=== PATIENT | female | born 1990 | race Caucasian/White ===

== ENCOUNTER → 2017-01-06 | Outpatient (CLI) | payer MEDICAID | LOC: OD 16:33 | PROVIDERS: ATTEND Midwife | DX: E03.9 Hypothyroidism, unspecified (principal) | CPT/HCPCS: 36415; 84443 ==

== ENCOUNTER 2017-05-15 21:37 | Outpatient (CLI) | payer OTHER, MEDICAID ==
[2017-05-15 22:10] LABS: APPEARANCE,URINE SLIGHTLY-CLOUDY; BILIRUBIN,URINE NEGATIVE (NEGATIVE); GLUCOSE, URINE NEGATIVE (NEGATIVE); KETONES,URINE TRACE mg/dL (NEGATIVE); LEUKOCYTE ESTERASE,URINE NEGATIVE (NEGATIVE); NITRITE,URINE NEGATIVE (NEGATIVE); PROTEIN,URINE 30 mg/dL (NEGATIVE); URINE SPECIFIC GRAVITY 1.023; UROBILINOGEN,URINE NEGATIVE mg/dL (<2.0)
[2017-05-15 22:25] LABS: URINE BARBITURATES SCREEN NEGATIVE; URINE METHADONE SCREEN NEGATIVE; URINE OPIATES LOW NEGATIVE; URINE PHENCYCLIDINE SCREEN NEGATIVE
[2017-05-15 23:26] LABS: ABSOLUTE BASOPHILS # (AUTO) 0.1 10^3/uL (0.0-0.2); ABSOLUTE EOSINOPHILS # (AUTO) 0.3 10^3/uL (0.0-0.6); ABSOLUTE LYMPHOCYTES (AUTO) 1.8 10^3/uL (0.5-4.7); BASOPHILS % (AUTO) 0.5 % (0-2); EOSINOPHILS % (AUTO) 2.5 % (0-6); HEMATOCRIT 34.6 % (36.0-47.0); HEMOGLOBIN 11.9 g/dL (12.0-15.5); HGB HCT DIFFERENCE 1.1; MEAN CORPUSCULAR HEMOGLOBIN 31.2 pg (27.0-33.4); MEAN CORPUSCULAR HGB CONC 34.4 g/dL (32.0-36.0); MEAN CORPUSCULAR VOLUME 91 fl (80-97); RED BLOOD COUNT 3.81 10^6/uL (3.72-5.28); RED CELL DISTRIBUTION WIDTH 13.5 % (11.5-14.0)
[2017-05-15] MEDS ORDERED: RANITIDINE HCL SYRUP 150 MG/10 ML UDCUP PO ONE (23:31)
[2017-05-15 23:45] LABS: ALANINE AMINOTRANSFERASE 32 U/L (9-52); ALBUMIN 3.3 g/dL (3.5-5.0); ALKALINE PHOSPHATASE 115 U/L (38-126); ANION GAP 12 (5-19); ASPARTATE AMINO TRANSFERASE 22 U/L (14-36); BILIRUBIN,DIRECT 0.3 mg/dL (0.0-0.4); BILIRUBIN,TOTAL 0.4 mg/dL (0.2-1.3); BLOOD UREA NITROGEN 10 mg/dL (7-20); CALCIUM 8.9 mg/dL (8.4-10.2); CARBON DIOXIDE 20 mmol/L (22-30); CHLORIDE 106 mmol/L (98-107); CREATININE RESULT 0.55 mg/dL (0.52-1.25); GLUCOSE 81 mg/dL (75-110); LDH 365 U/L (313-618); POTASSIUM 3.7 mmol/L (3.6-5.0); TOTAL PROTEIN 6.5 g/dL (6.3-8.2); URIC ACID 6.3 mg/dL (2.5-6.2)
--- NOTE | 2017-05-16 00:55 | L&D Progress Notes ---
PROGRESS NOTES Datetime Report Generated by CPN: 05/16/2017 00:55 PROGRESS NOTE Impression Other: Hypertension @ 38w6d Plan: Discharge Informed Consent Obtained: Risks, Benefits and Alternatives Discussed Vital Signs : Reviewed Vital Signs Comments: Mild range hypertension Comment: 26yo G1 @ 38w6d presents to LD with complaints of new onset LE swelling and visual changes consisting of zig zags in front of eyes. Upon questioning, pt denies HAs and RUQ pain. Pt admits to mid epigastric discomfort for which she has taken tums this but no other antacid medication. Pt denies morning facial edema or any other non-dependant edema. Pt denies LOF and regular painful contractions, only LBP and left sided discomfort and left sided sciatica. Pt states she feels as if the baby is slowing down but admits to regular movements after eating. non stress test is reactive without any form of decelerations. Pt denies any problems with this . Pt is present with her and sister in law. Pt lives approximately 10[place]ins away according to her . Pt is comfortable with collecting a 24hr urine and returning to D. Patient appears to be reliable and has good support. Physical Exam: Abdomen-gravid, NT, No RUQ pain, mid epiastric tenderness Extremities- LE reflex is 1+, no clonus: UE 2+ Back: No CVA tenderness LABS: HELLP labs are negative Urate 6.2 but Cr 0.5 Assessement: 1. Hypertension @ 38w6d in primigravida 2. Questionable neurologic stigmata 3. Unfavorable cervix 4. GBS negative PLAN: 1. Return outpatient 24urine to L_D on 17 May 2017 2. NST, Growth and BPP on 17 May 2017 3. Discharge home with PreE precautions, FKCs and labor precautions 4. Pt to reutrn if current status changes 5. Will inform Dr. Contreras if patient does not represent prior to turning in her 24hr urine VAGINAL EXAM Contractions: 6-9 mins MEMBRANES Membranes: Intact FETUS A FHR - Baseline: 130s Monitoring: External US Variability: Moderate 6-25bpm Accelerations: 15X15 Decelerations: None FHR Category: Category I FHR Comments: Reasurring status and reactive SIGNATURE SIGNATURE: [id number] Signature: with User ID: [email or web address]
[2017-05-17 10:32] LABS: URINE PROTEIN 9.7 mg/dL (<12)
--- NOTE | 2017-05-20 09:09 | Non Stress Test Report ---
Non Stress Test Datetime Report Generated by CPN: 05/20/2017 09:08 DEMOGRAPHIC EGA NST: 38.6 INDICATION Indication for Study: Decreased Movement; Ordered by Provider MONITORING Monitor Explained: Monitor Explained; Test Explained; Patient Verbalized Understanding Time on Monitor: 05/15/2017 21:48 Time off Monitor: 05/16/2017 00:03 NST Duration: 135 NST INTERVENTIONS NST Interventions: PO Hydration Physician Notified NST: Dr. Maciel BABY A: [id number] BABY A Movement : Present Contraction Frequency : 5-10 FHR Baseline : 120 Accelerations : 15X15 Decelerations : None Variability : Moderate 6-25bpm NST Review: Meets Criteria for Reactive NST NST Review and Verified By : Amanda Gagnon RN NST Results: Reactive NST REPORT Report Trigger: Send Report
== END 2017-05-16 00:23 | disposition home or self-care (01) ==
LOC: LC 21:37 → UNDOADMOB 23:23 → LR 23:23 → UNDODISOB 05-16 00:23 → LC 05-16 00:23
PROVIDERS: ATTEND Obstetrics & Gynecology
PROC: 4A1HXCZ Monitoring of Products of Conception, Cardiac Rate, External Approach (ICD-10-PCS; principal; 2017-05-15)
DX: O16.3 Unspecified maternal hypertension, third trimester (principal); Z3A.38 38 weeks gestation of pregnancy; O36.8130 Decreased fetal movements, third trimester, not applicable or unspecified
CPT/HCPCS: 59025; 36415; 83615; 84156; 84550; 85025; 81005; 80053; 80307; J3490

== ENCOUNTER 2017-05-20 09:30 | Outpatient (CLI) | payer OTHER, MEDICAID ==
[2017-05-20 10:30] LABS: APPEARANCE,URINE CLOUDY; BILIRUBIN,URINE NEGATIVE (NEGATIVE); GLUCOSE, URINE NEGATIVE (NEGATIVE); KETONES,URINE NEGATIVE (NEGATIVE); LEUKOCYTE ESTERASE,URINE SMALL (NEGATIVE); NITRITE,URINE NEGATIVE (NEGATIVE); PROTEIN,URINE 30 mg/dL (NEGATIVE); URINE SPECIFIC GRAVITY 1.023; UROBILINOGEN,URINE NEGATIVE mg/dL (<2.0)
[2017-05-20 10:39] LABS: ABSOLUTE BASOPHILS # (AUTO) 0.1 10^3/uL (0.0-0.2); ABSOLUTE EOSINOPHILS # (AUTO) 0.2 10^3/uL (0.0-0.6); ABSOLUTE LYMPHOCYTES (AUTO) 1.5 10^3/uL (0.5-4.7); ABSOLUTE MONOCYTES (AUTO) 0.7 10^3/uL (0.1-1.4); ABSOLUTE NEUT (AUTO) 7.7 10^3/uL (1.7-8.2); BASOPHILS % (AUTO) 0.6 % (0-2); EOSINOPHILS % (AUTO) 1.5 % (0-6); HEMATOCRIT 35.6 % (36.0-47.0); HEMOGLOBIN 12.6 g/dL (12.0-15.5); HGB HCT DIFFERENCE 2.2; LYMPHOCYTES % (AUTO) 14.9 % (13-45); MEAN CORPUSCULAR HEMOGLOBIN 31.8 pg (27.0-33.4); MEAN CORPUSCULAR HGB CONC 35.4 g/dL (32.0-36.0); MEAN CORPUSCULAR VOLUME 90 fl (80-97); MONOCYTES % (AUTO) 6.6 % (3-13); RED BLOOD COUNT 3.95 10^6/uL (3.72-5.28); RED CELL DISTRIBUTION WIDTH 13.4 % (11.5-14.0); SEGMENTED NEUTROPHILS % (AUTO) 76.4 % (42-78)
[2017-05-20 10:52] LABS: URINE BARBITURATES SCREEN NEGATIVE; URINE METHADONE SCREEN NEGATIVE; URINE OPIATES LOW NEGATIVE; URINE PHENCYCLIDINE SCREEN NEGATIVE
[2017-05-20 10:56] LABS: URINE CREATININE 269.7 mg/dL (16-327); URINE PROTEIN 11.1 mg/dL (<12)
[2017-05-20 11:09] LABS: ALANINE AMINOTRANSFERASE 29 U/L (9-52); ALBUMIN 3.4 g/dL (3.5-5.0); ALKALINE PHOSPHATASE 120 U/L (38-126); ANION GAP 13 (5-19); ASPARTATE AMINO TRANSFERASE 21 U/L (14-36); BILIRUBIN,DIRECT 0.3 mg/dL (0.0-0.4); BILIRUBIN,TOTAL 0.5 mg/dL (0.2-1.3); BLOOD UREA NITROGEN 10 mg/dL (7-20); CALCIUM 9.2 mg/dL (8.4-10.2); CARBON DIOXIDE 20 mmol/L (22-30); CHLORIDE 104 mmol/L (98-107); CREATININE RESULT 0.61 mg/dL (0.52-1.25); GLUCOSE 74 mg/dL (75-110); LDH 375 U/L (313-618); POTASSIUM 4.1 mmol/L (3.6-5.0); SODIUM 137.3 mmol/L (137-145); TOTAL PROTEIN 6.7 g/dL (6.3-8.2); URIC ACID 6.9 mg/dL (2.5-6.2)
--- NOTE | 2017-05-20 11:43 | Non Stress Test Report ---
Non Stress Test Datetime Report Generated by CPN: 05/20/2017 11:43 DEMOGRAPHIC EGA NST: 39.4 INDICATION Indication for Study: Ordered by Provider; Other Indication for Study (NST) Other: Increased blood pressure in office MONITORING Monitor Explained: Monitor Explained; Test Explained; Patient Verbalized Understanding Time on Monitor: 05/20/2017 10:07 Time off Monitor: 05/20/2017 10:27 NST Duration: 20 NST INTERVENTIONS NST Interventions: PO Hydration Physician Notified NST: A. Meneses, CNM BABY A Movement : Present Contraction Frequency : irritibility FHR Baseline : 120 Accelerations : 15X15 Decelerations : None Variability : Moderate 6-25bpm NST Review: Meets Criteria for Reactive NST NST Review and Verified By : Omar Gilliam RN NST Results: Reactive NST REPORT Report Trigger: Send Report
== END 2017-05-20 11:13 | disposition home or self-care (01) ==
LOC: LC 09:30
PROVIDERS: ATTEND Obstetrics & Gynecology
PROC: 4A1HXCZ Monitoring of Products of Conception, Cardiac Rate, External Approach (ICD-10-PCS; principal; 2017-05-20)
DX: O16.3 Unspecified maternal hypertension, third trimester (principal); Z3A.39 39 weeks gestation of pregnancy
CPT/HCPCS: 36415; 59025; 80053; 80307; 81001; 82570; 83615; 84156; 84550; 85025

== ENCOUNTER 2017-05-20 19:03 | Inpatient (IN) | payer OTHER, MEDICAID ==
[2017-05-20 19:48] LABS: ABSOLUTE BASOPHILS # (AUTO) 0.1 10^3/uL (0.0-0.2); ABSOLUTE EOSINOPHILS # (AUTO) 0.2 10^3/uL (0.0-0.6); ABSOLUTE LYMPHOCYTES (AUTO) 2.2 10^3/uL (0.5-4.7); ABSOLUTE MONOCYTES (AUTO) 0.9 10^3/uL (0.1-1.4); BASOPHILS % (AUTO) 0.7 % (0-2); EOSINOPHILS % (AUTO) 2.2 % (0-6); HEMOGLOBIN 12.3 g/dL (12.0-15.5); HGB HCT DIFFERENCE 1.9; LYMPHOCYTES % (AUTO) 21.4 % (13-45); MEAN CORPUSCULAR HEMOGLOBIN 31.7 pg (27.0-33.4); MEAN CORPUSCULAR HGB CONC 35.1 g/dL (32.0-36.0); MEAN CORPUSCULAR VOLUME 90 fl (80-97); MONOCYTES % (AUTO) 8.5 % (3-13); RED BLOOD COUNT 3.88 10^6/uL (3.72-5.28); RED CELL DISTRIBUTION WIDTH 13.2 % (11.5-14.0); SEGMENTED NEUTROPHILS % (AUTO) 67.2 % (42-78); WHITE BLOOD COUNT 10.5 10^3/uL (4.0-10.5)
[2017-05-20 20:05] LABS: APPEARANCE,URINE CLOUDY; BILIRUBIN,URINE NEGATIVE (NEGATIVE); GLUCOSE, URINE NEGATIVE (NEGATIVE); KETONES,URINE NEGATIVE (NEGATIVE); LEUKOCYTE ESTERASE,URINE LARGE (NEGATIVE); NITRITE,URINE NEGATIVE (NEGATIVE); PROTEIN,URINE 30 mg/dL (NEGATIVE); URINE SPECIFIC GRAVITY 1.025; UROBILINOGEN,URINE NEGATIVE mg/dL (<2.0)
[2017-05-20 20:07] LABS: URINE BARBITURATES SCREEN NEGATIVE; URINE METHADONE SCREEN NEGATIVE; URINE OPIATES LOW NEGATIVE; URINE PHENCYCLIDINE SCREEN NEGATIVE
[2017-05-20] MEDS ORDERED: DINOPROSTONE 10 MG VAGINAL INSERT.SR PV PRN (20:25)
[2017-05-20] MEDS ORDERED: RINGERS SOLUTION,LACTATED 1,000 ML IV PRN (20:25)
[2017-05-20] MEDS ORDERED: RINGERS SOLUTION,LACTATED 300 ML IV ONE (20:25)
[2017-05-20] MEDS ORDERED: DINOPROSTONE 10 MG VAGINAL INSERT.SR ONE (21:07)
[2017-05-21 04:27] LABS: AMNISURE (ROM) POSITIVE (NEGATIVE)
[2017-05-21] MEDS ORDERED: MISOPROSTOL 0.2 MG TABLET ONE (08:41)
[2017-05-21] MEDS ORDERED: LIDOCAINE 1% INJ-PF (10 MG/ML) 30 ML SDV ONE (08:42)
[2017-05-21] MEDS ORDERED: EPHEDRINE SULFATE INJ 50 MG/1 ML AMPULE ONE (08:42)
[2017-05-21] MEDS ORDERED: FENTANYL/BUPIVACAINE/NS/PF 200 MCG/100 ML RTUINJ EPI ONE (08:42)
[2017-05-21] MEDS ORDERED: BUPIVACAINE HCL 0.25 % INJ/PF (2.5 MG/1 ML) 30 ML VIAL ONE (08:42)
[2017-05-21] MEDS ORDERED: OXYTOCIN/NORMAL SALINE 20 UNIT/1,000 ML RTUINJ ONE (08:42)
--- NOTE | 2017-05-21 09:15 | L&D Progress Notes ---
PROGRESS NOTES Datetime Report Generated by CPN: 05/21/2017 09:15 PROGRESS NOTE Impression: Normal Progression of Labor Plan: Continue Present Management; Induction Informed Consent Obtained: Vaginal Delivery; Section Delivery; Induction of Labor; Risks, Benefits and Alternatives Discussed Comment: 26 yo admitted for cervical ripening d/t possible gestational hypertension EDC 05/23/17 EGA 39;.5 unremarkable history history of hypothyroidism- on levothyroxine 88 mcg abdomen nontender FHTs 130s cat 1 cervidil removed SVE 5/c/0 uterine contractions 2-3 min apart ruptured at 0340 clear pt desires epidural prepped for epidural placement comfort measuires reviewed anticipate VAGINAL EXAM Dilatation: 5 Effacement: 100 Station: 0 MEMBRANES Membranes: Ruptured Amniotic Fluid Color: Clear FETUS A Monitoring: External US Variability: Moderate 6-25bpm Accelerations: 15X15 Decelerations: None FHR Category: Category I : 39.5 SIGNATURE SIGNATURE: [id number];[id number] SIGNATURE: [id number];[id number] SIGNATURE: [id number];[id number] Assignment: Lowell Nunez MD Signature: with User ID: [email or web address] : with User ID: [email or web address]
[2017-05-21] MEDS ORDERED: ZOLPIDEM TARTRATE 5 MG TABLET PO PRN (16:40)
[2017-05-21] MEDS ORDERED: PROMETHAZINE HCL 25 MG TABLET PO PRN (16:40)
[2017-05-21] MEDS ORDERED: GLYCERIN/WITCH HAZEL LEAF 1 EACH MED..PAD TP PRN (16:40)
[2017-05-21] MEDS ORDERED: DIPHENHYDRAMINE HCL 25 MG CAPSULE PO PRN (16:40)
[2017-05-21] MEDS ORDERED: BENZOCAINE/MENTHOL AEROSOL SPRAY 56 ML TOP PRN (16:40)
[2017-05-21] MEDS ORDERED: DIPH/PERTUSS(ACELL)/TETANUS VAC/PF 0.5 ML SYR (>=10YO) IM PRN (16:40)
[2017-05-21] MEDS ORDERED: PSEUDOEPHEDRINE HCL 30 MG TABLET PO PRN (16:40)
[2017-05-21] MEDS ORDERED: MAGNESIUM HYDROXIDE SUSP 30 ML UDCUP PO PRN (16:40)
[2017-05-21] MEDS ORDERED: OXYTOCIN/NORMAL SALINE 20 UNIT/1,000 ML RTUINJ IV PRN (16:40)
[2017-05-21] MEDS ORDERED: NA PHOS,M-B/NA PHOS,DI-BA (ADULT) 133 ML ENEMA PR PRN (16:40)
[2017-05-21] MEDS ORDERED: PROMETHAZINE HCL 25 MG SUPP.RECT PR PRN (16:40)
[2017-05-21] MEDS ORDERED: DIBUCAINE 1% OINTMENT 28 GM TP PRN (16:40)
[2017-05-21] MEDS ORDERED: MEASLES,MUMPS&RUBELLA VACC/PF 0.5 ML VIAL SUBCUT PRN (16:40)
[2017-05-21] MEDS ORDERED: ACETAMINOPHEN 650 MG SUPP.RECT PR PRN (16:40)
[2017-05-21] MEDS ORDERED: PROMETHAZINE HCL INJ 25 MG/1 ML VIAL IV PRN (16:40)
[2017-05-21] MEDS ORDERED: ACETAMINOPHEN WITH CODEINE #3 TABLET PO PRN (16:40)
--- NOTE | 2017-05-21 17:59 | Delivery Summary ---
Del Sum A-C Datetime Report Generated by CPN: 05/21/2017 17:58 DELIVERY PERSONNEL DELIVERY PERSONNEL: [id number] Delivery Doctor:: Laverne Bhatti CNM Nurse Awning Hanger Supervisor Certified:: Laverne Bhatti CNM Labor and Delivery Nurse:: Amanda Sanchez RNhorticultural farmer Nurse:: Mitali Smith RN Cruise Agent/MAP DRAFTER: Lindsay Hernandez CNA II Cruise Agent/MAP DRAFTER: Vielka Mcgarry, ST Additional Personnel: : Agueda Beach, RN MATERNAL INFORMATION Delivery Anesthesia: Epidural Medications After Delivery: Pitocin Bolus-Please Comment; Pitocin Drip 20 Units/1000ml NSS Estimated Blood Loss (ml): 300 Maternal Complications: None Provider Comments: delivery of viable male apgars 9/9 bulb suctioned on perineum small right mediolateral incision made left compound hand infant to abdomen placenta intact small clots expelled 3VC rml repaired in usual fashion with 1% lidocaine pt tolerated well EBL 300 cc hemostasis achieved LABOR SUMMARY EDC: 05/23/2017 00:00 No. Babies in Womb: 1 Attempted: No Labor Anesthesia: Epidural LABOR INFORMATION Reason for Induction: Chronic Hypertension; Gestational Hypertension Onset of Labor: 05/21/2017 03:40 Complete Dilatation: 05/21/2017 13:26 Cervical Ripening Agents: Cervidil Oxytocin: Augmentation Group B Beta Strep: Negative Antibiotics # of Doses: 0 Steroids Given: None Reason Steroids Not Administered: Not Applicable MEMBRANES Membranes Rupture Method: Spontaneous Rupture of Membranes: 05/21/2017 03:40 Length of Rupture (hr): 12.57 Amniotic Fluid Color: Clear Amniotic Fluid Amount: Small Amniotic Fluid Odor: Normal STAGES OF LABOR Stage 1 hr: 9 Stage 1 min: 46 Stage 2 hr: 2 Stage 2 min: 48 Stage 3 hr: 0 Stage 3 min: 2 Total Time in Labor hr: 12 Total Time in Labor min: 36 VAGINAL DELIVERY Episiotomy: Right Mediolateral Laceration #1: Vaginal Laceration Extension #1: First Degree Other Laceration: L labial Laceration Repair: Yes Laceration Repair Note: repaired with 2.0 and 3.0 in usual fashion CSECTION DELIVERY Primary Indication: N/A Secondary Indication: N/A CSection Incidence: N/A Labor: N/A Elective: N/A CSection Incision: N/A BABY A INFORMATION Delivery Date/Time: 05/21/2017 16:14 Method of Delivery: Vaginal Born in Route : No : N/A Forceps: N/A Vacuum Extraction: N/A Shoulder Dystocia : No PRESENTATION/POSITION BABY A Presentation: Cephalic Cephalic Presentation: Vertex Vertex Position: Left Occipital Anterior Breech Presentation: N/A PLACENTA INFORMATION BABY A Placenta Delivery Time : 05/21/2017 16:16 Placenta Method of Delivery: Spontaneous Placenta Status: Delivered SCORES BABY A Heart Rate 1 min: >100 bpm Resp Effort 1 min: Good Cry Reflex Irritability 1 min: Cough or Sneeze or Pulls Away Muscle Tone 1 min: Active Motion Color 1 min: Body [place], Extremities Blue Resuscitation Effort 1 min: Tactile Stimulation SCORE 1 MIN: 9 Heart Rate 5 min: >100 bpm Resp Effort 5 min: Good Cry Reflex Irritability 5 min: Cough or Sneeze or Pulls Away Muscle Tone 5 min: Active Motion Color 5 min: Body [place], Extremities Blue Resuscitation Effort 5 min: Tactile Stimulation SCORE 5 MIN: 9 INFORMATION BABY A Gestational Age at Delivery: 39.5 Gestational Status: Full Term- 39- 40.6 Weeks Infant Outcome : Liveborn Condition : Stable Sex: Male IDENTIFICATION BABY A Verification Date/Time: 05/21/2017 16:28 ID Band Number: [id number] Mother's Name Verified: Yes RN Verifying : J, RN and S.Camp, RN WEIGHT/LENGTH BABY A Infant Birthweight (gm): 3220 Weight (lb): 7 Infant Weight (oz): 2 Infant Length (in): 19.75 Infant Length (cm): 50.17 CORD INFORMATION BABY A No. Cord Vessels: 3 Nuchal Cord : N/A Cord Blood Taken: Yes-For Storage (Mom's Blood type +) Infant Suction: Mouth; Nose ASSESSMENT BABY A Complications: Other Complications- Other: left compound hand Physical Findings at Delivery: Within Normal Limits Respirations: Appears Normal Skin to Skin: Yes Caddy Master/ALS Called : No Care By: J. Field RN Transferred To: Remains with Mother BABY B INFORMATION : N/A SIGNATURES Assignment: Lowell Nunez MD Signature: with User ID: [email or web address] : with User ID: [email or web address]
--- NOTE | 2017-05-21 18:23 | Admission Physical ---
Datetime Report Generated by CPN: 05/21/2017 18:22 CURRENT ADMISSION Chief Complaint: Scheduled Induction of Labor Indication for Induction: Chronic Hypertension Indication for Induction: Term, Intrauterine ; Induction of Labor Admit Plan: Admit to Unit; Initiate Labor Induction Protocol ALLERGIES Medication Allergies: No Medication Allergies: No Known Allergies (10/29/2015) Latex: No Latex Allergies Food Allergies: N/A Environmental Allergies: N/A OBSTETRICAL HISTORY EDC: 05/23/2017 00:00 : 1 Para: 0 Term: 0 : 0 SAB: 0 IAB: 0 Ectopic: 0 Livin Cesareans: 0 VBACs: 0 Multiple Births: 0 Gestational Diabetes: No Rh Sensitization: No Incompetent Cervix: No DIAN: No Infertility: No ART Treatment: No Uterine Anomaly: No IUGR: No Hx Previous C/S: No Macrosomia: No Hx Loss/Stillborn: No PIH: No Hx : No Placenta Previa/Abruption: No Depression/PP Depression: No PTL/PROM: No Post Hemorrhage: No Current Procedures: Ultrasound; NST Obstetrical History Comments: G1- current SEE RECORDS Alcohol: No Marijuana : No Cocaine: No Other Illicit Drugs: No Cigarettes: Never Smoker. [id number] MEDICAL HISTORY Diabetes: No Blood Transfusion: No Pulmonary Disease (Asthma, TB): No Breast Disease: No Hypertension: No Pv Installer Tech Surgery: No Heart Disease: No Hosp/Surgery: No Autoimmune Disorder: No Anesthetic Complications: No Kidney Disease: No Abnormal Pap Smear: No Neuro/Epilepsy: No Psychiatric Disorders: No Other Medical Diseases: No Hepatitis/Liver Disease: No Significant Family History: No Varicosities/Phlebitis: No Trauma/Violence : No Thyroid Dysfunction: Yes Medical History Comments: Hypothyroidism INFECTIOUS HISTORY Gonorrhea: No Genital Herpes: No Chlamydia: No Tuberculosis: No Syphilis: No Hepatitis: No HIV/AIDS Exposure: No Rash or Viral Illness: No HPV: No Infectious History Comments: genital warts PHYSICAL EXAM General: Normal HEENT: Normal Neurologic: Normal Thyroid: Normal Heart: Normal Lungs: Normal Breast: Deferred Back: Normal Abdomen: Normal Genitourinary Exam: Normal Extremities: Normal DTRs: Normal Pelvic Type: Adequate Vital Signs: Reviewed VAGINAL EXAM Dilatation: 5 Dilatation: 0 Effacement: 100 Effacement: 0 Station: 0 Station: -2 Contraction Comments: 6-9 mins MEMBRANES Pooling: Negative Membranes: Ruptured Membranes: Intact Amniotic Fluid Color: Clear FETUS A EGA: 38.6 Monitoring: External US FHR- Baseline: 140 Variability: Moderate 6-25bpm Accelerations: 15X15 FHR Category: Category I Presentation: Vertex Admit Comment: Admit for cervadil. PLANS FOR LABOR AND DELIVERY Labor and Delivery: None Pain Management: Epidural Feeding Preference: Breast Benefit of Breast Feed Discussed: Yes Circumcision: No INFORMED CONSENT Informed Consent Obtained: Vaginal Delivery; Section Delivery; Induction of Labor; Risks, Benefits and Alternatives Discussed Informed Consent Obtained: Risks, Benefits and Alternatives Discussed Signature: with User ID: [email or web address]
[2017-05-21] MEDS: FERROUS SULFATE 325 MG TABLET PO SCH (19:04)
[2017-05-21] MEDS: DOCUSATE SODIUM 100 MG CAPSULE PO SCH (19:04)
[2017-05-21] MEDS: IBUPROFEN 800 MG TABLET PO SCH (22:30)
[2017-05-21] MEDS: FAMOTIDINE 20 MG TABLET PO SCH (22:31)
[2017-05-22] MEDS: IBUPROFEN 800 MG TABLET PO SCH ×3 (05:52→21:13)
[2017-05-22 09:18] LABS: HEMATOCRIT 31.6 % (36.0-47.0); HEMOGLOBIN 10.8 g/dL (12.0-15.5); HGB HCT DIFFERENCE 0.8; MEAN CORPUSCULAR HEMOGLOBIN 31.1 pg (27.0-33.4); MEAN CORPUSCULAR HGB CONC 34.1 g/dL (32.0-36.0); MEAN CORPUSCULAR VOLUME 91 fl (80-97); RED BLOOD COUNT 3.46 10^6/uL (3.72-5.28); RED CELL DISTRIBUTION WIDTH 13.8 % (11.5-14.0); WHITE BLOOD COUNT 20.5 10^3/uL (4.0-10.5)
[2017-05-22] MEDS: DOCUSATE SODIUM 100 MG CAPSULE PO SCH ×2 (09:24→17:41)
[2017-05-22] MEDS: FAMOTIDINE 20 MG TABLET PO SCH ×2 (09:25→21:14)
[2017-05-22] MEDS: PRENATAL VITAMIN W DHA CAPSULE PO SCH (09:25)
[2017-05-22] MEDS: FERROUS SULFATE 325 MG TABLET PO SCH ×2 (09:25→17:41)
[2017-05-22] MEDS: SENNOSIDES/DOCUSATE 8.6-50 MG 1 EACH TABLET PO SCH (09:26)
--- NOTE | 2017-05-22 10:06 | PDOC PROGRESS REPORT ---
Subjective-OB Subjective: Post Delivery Day: 26 year old. Denies any needs at this time Physical Exam (OB) Vital Signs: Temp Pulse Resp BP Pulse Ox 98.3 F 80 16 127/83 H 99 05/22/17 08:11 05/22/17 08:11 05/22/17 08:11 05/22/17 08:11 05/22/17 08:11 Intake & Output 05/21/17 05/22/17 05/23/17 06:59 06:59 06:59 Intake Total 422 Output Total 1 Balance 421 Weight 82.2 kg - PIH/Pre-Eclampsia DTR's: 2 + Clonus: Negative Headache: Absent Epigastric Pain: No Visual Changes: No - Lochia Lochia Amount: Scant < 10 ml Lochia Color: Rubra/Red - Abdomen Description: Soft, Round Hernia Present: No Bowel Sounds: Normoactive Flatus Presence: Present Stool: No Fundal Description: Firm, Midline Fundal Height: u/u - u/2 Objective-Diagnostic Laboratory: 05/22/17 08:42 05/22/17 08:42 WBC 20.5 H RBC 3.46 L Hgb 10.8 L Hct 31.6 L MCV 91 MCH 31.1 MCHC 34.1 RDW 13.8 Plt Count 207
[2017-05-23] MEDS: IBUPROFEN 800 MG TABLET PO SCH (05:57)
[2017-05-23 07:19] LABS: HEMATOCRIT 26.9 % (36.0-47.0); HEMOGLOBIN 9.5 g/dL (12.0-15.5); HGB HCT DIFFERENCE 1.6; MEAN CORPUSCULAR HEMOGLOBIN 32.1 pg (27.0-33.4); MEAN CORPUSCULAR HGB CONC 35.2 g/dL (32.0-36.0); MEAN CORPUSCULAR VOLUME 91 fl (80-97); RED BLOOD COUNT 2.95 10^6/uL (3.72-5.28); RED CELL DISTRIBUTION WIDTH 13.7 % (11.5-14.0); WHITE BLOOD COUNT 13.3 10^3/uL (4.0-10.5)
[2017-05-23] MEDS: FERROUS SULFATE 325 MG TABLET PO SCH (09:56)
--- NOTE | 2017-05-23 10:22 | PDOC DISCHARGE SUMMARY ---
Final Diagnosis Discharge Date: 05/23/17 - Final Diagnosis (1) Delivery normal Is this a current diagnosis for this admission?: Yes (2) Hypothyroidism Is this a current diagnosis for this admission?: Yes (3) Is this a current diagnosis for this admission?: No (4) Chronic hypertension Is this a current diagnosis for this admission?: Yes Discharge Data - Discharge Medication Home Medications: Loratadine [Claritin 10 mg Tablet] 1 tab PO PRN PRN 05/20/17 Ibuprofen [Motrin 800 mg Tablet] 800 mg PO Q8 #60 tablet 05/23/17 Levothyroxine Sodium [Synthroid 0.05 mg Tablet] 88 mcg PO DAILY #0 05/23/17 Vit/Dha [ Multi + Dha Capsule] 1 cap PO DAILY capsule Reason(s) for Admission: Induction of Labor Intrapartum Procedure(s): Spontaneous Vaginal Delivery Complication(s): Laceration-Perineal - Diagnosis Test Laboratory: Temp Pulse Resp BP Pulse Ox 97.9 F 80 16 128/88 H 98 05/23/17 08:16 05/23/17 08:16 05/23/17 08:16 05/23/17 08:16 05/23/17 08:16 05/20/17 05/20/17 05/22/17 19:35 19:35 08:42 RBC 3.88 3.46 L Hgb 12.3 10.8 L Hct 35.0 L 31.6 L Urine Opiates Screen NEGATIVE 05/23/17 06:52 RBC 2.95 L Hgb 9.5 L Hct 26.9 L Urine Opiates Screen - Discharge information/Instructions Discharge Activity: Activity As Tolerated, Balance Activity w/Rest, No Lifting Over 10 Pounds, No Lifting/Push/Pulling, Pelvic Rest, No tub bath Discharge Diet: Regular Disposition: HOME, SELF-CARE Follow up with: [facility] in: 1, Weeks
--- NOTE | 2017-05-23 10:24 | PDOC PROGRESS REPORT ---
Subjective-OB Subjective: Post Delivery Day: 26 year old. Denies any needs at this time Physical Exam (OB) Vital Signs: Temp Pulse Resp BP Pulse Ox 97.9 F 80 16 128/88 H 98 05/23/17 08:16 05/23/17 08:16 05/23/17 08:16 05/23/17 08:16 05/23/17 08:16 Intake & Output 05/22/17 05/23/17 05/24/17 06:59 06:59 06:59 Intake Total 422 240 Output Total 1 Balance 421 240 - Abdomen Description: Soft, Round Hernia Present: No Fundal Description: Firm, Midline Fundal Height: u/u - u/2 - Abdominal Tenderness: Nontender - Extremities Lower extremities: Abril's sign - neg Calf: Normal, Nontender Objective-Diagnostic Laboratory: 05/23/17 06:52 05/23/17 06:52 WBC 13.3 H RBC 2.95 L Hgb 9.5 L Hct 26.9 L MCV 91 MCH 32.1 MCHC 35.2 RDW 13.7 Plt Count 178 Assessment and Plan(PN) - Assessment and Plan (1) Delivery normal Is this a current diagnosis for this admission?: Yes (2) Hypothyroidism Is this a current diagnosis for this admission?: Yes (3) Is this a current diagnosis for this admission?: No (4) Chronic hypertension Is this a current diagnosis for this admission?: Yes
[2017-05-23] MEDS: DOCUSATE SODIUM 100 MG CAPSULE PO SCH (10:40)
[2017-05-23] MEDS: FAMOTIDINE 20 MG TABLET PO SCH (10:41)
[2017-05-23] MEDS: PRENATAL VITAMIN W DHA CAPSULE PO SCH (10:41)
[2017-05-23] MEDS: SENNOSIDES/DOCUSATE 8.6-50 MG 1 EACH TABLET PO SCH (10:41)
[2017-05-23 11:05] VITALS: BP 120/76
== END 2017-05-23 12:26 | disposition home or self-care (01) | DRG 774 ==
LOC: LR 19:03 → 2S 05-21 18:20
PROVIDERS: ADMIT Obstetrics & Gynecology; ATTEND Obstetrics & Gynecology
PROC: 4A1HXCZ Monitoring of Products of Conception, Cardiac Rate, External Approach (ICD-10-PCS; 2017-05-20)
PROC: 10E0XZZ Delivery of Products of Conception, External Approach (ICD-10-PCS; principal; 2017-05-21)
PROC: 0W8NXZZ Division of Female Perineum, External Approach (ICD-10-PCS; 2017-05-21)
PROC: 3E0P7GC Introduction of Other Therapeutic Substance into Female Reproductive, Via Natural or Artificial Opening (ICD-10-PCS; 2017-05-21)
DX: O10.92 Unspecified pre-existing hypertension complicating childbirth (principal); O99.284 Endocrine, nutritional and metabolic diseases complicating childbirth; E03.9 Hypothyroidism, unspecified; O32.6XX0 Maternal care for compound presentation, not applicable or unspecified; O70.0 First degree perineal laceration during delivery; Z28.21 Immunization not carried out because of patient refusal; Z3A.00 Weeks of gestation of pregnancy not specified; Z37.0 Single live birth
CPT/HCPCS: 36415; 80307; 81005; 84112; 85025; 85027; 86592; 86850; 86900; 86901; 94760; J2590; J3490